=== PATIENT | female | born 1950 | race Caucasian/White ===

== ENCOUNTER 2017-01-15 17:01 | Inpatient (IN) ==
[2017-01-15] MEDS ORDERED: ASPIRIN PO STA (17:55)
[2017-01-15 18:01] LABS: MANUAL DIFF NEEDED? NO
[2017-01-15 18:04] LABS: BASO% 0.2 % (0.0-0.8); EOS# 0.09 X1000 (0.0-0.7); EOS% 0.8 % (0.0-10.0); HEMATOCRIT 46.3 % (37.0-47.0); HEMOGLOBIN 15.5 g/dL (12.0-16.0); IMM GRAN# 0.04 X1000 (0.0-0.04); IMM GRAN% 0.3 % (0.0-0.5); LYMPH# 2.36 X1000 (1.2-3.4); LYMPH% 20.6 % (20.5-51.1); MCH 29.4 PG (27-31); MCHC 33.5 g/dL (33-37); MCV 87.7 FL (81-99); MONO# 0.89 X1000 (0.11-0.59); MONO% 7.8 % (1.7-9.3); MPV 10.8 FL (7.4-10.4); NEUT% 70.3 % (42.2-75.2); PLT 220 X1000 (130-400); RBC 5.28 XMIL (4.2-5.4)
--- NOTE | 2017-01-15 18:04 | PROVIDER DOCUMENTATION ---
This chart was entered by Jeannette Krishnan Scribe, acting as scribe for Riccardo Khan MD. HPI-Chest Pain - General Source: patient - History of Present Illness-CP Location: reports: central Chest Pain Radiation: reports: jaw (R) Quality of Pain: reports: aching Severity in ED: mild Onset/Duration: just prior to arrival Timing: still present, intermittent Context/Activities at Onset: reports: light activity Modifying Factors: improves with: nothing Associated Symptoms: reports: dizziness, shortness of breath, weakness. denies : abdominal pain, back pain, diaphoresis, edema, fatigue, fever/chills, headache , heartburn, nausea, rash, swelling/lump in chest, syncope, vomiting Nitro Today/Relief: no nitro taken today Aspirin Treatment Today: no aspirin today Prior Chest Pain/Cardiac Workup: reports: no prior chest pain, no prior cardiac workup Similar Symptoms Previously?: Yes Recently Seen Here or By Another Healthcare Provider: No <Riccardo Khan I - Last Filed: 01/15/17 18:04> <Ko Kennedy - Last Filed: 01/15/17 22:23> - General Chief Complaint: Chest Pain Stated Complaint: syncope, R jaw pain, chest pressure Time Seen by Provider: 01/15/17 17:38 Allergies/Adverse Reactions: Patient Allergies Allergy/AdvReac Type Severity Reaction Status Date / Time No Known Allergies Allergy Verified 01/15/17 17:29 Home Medications: Home Medication List Medication Instructions Recorded Confirmed Last Taken Type Alprazolam [Xanax] 0.25 mg PO TID PRN PRN 06/16/13 01/15/17 Unknown History Levothyroxine [Synthroid] 100 microgm PO DAILY 06/16/13 01/15/17 01/15/17 10:00 History Triamterene/Hctz [Maxzide 75/50] 1 each PO DAILY 06/16/13 01/15/17 01/15/17 10: 00 History l-Dopa/Carbidopa/Entacapone 1 each PO 4XDAY 06/16/13 01/15/17 01/15/17 14:00 History [Stalevo 100] Oxybutynin [Ditropan] 15 mg PO BID 01/15/17 01/15/17 01/15/17 10:00 History - History of Present Illness-CP Nature of Presenting Problem: Pt is 66 y/o F presents to the ED via EMS for chest pain. Pt states chest pain started today. Pt states feeling dizzy prior to chest pain. Pt states chest pain radiates to R side of jaw. Pt states SOB. Pt denies HTN and diabetes. ( Jeannette Krishnan) Pt is 66 y/o F presents to the ED via EMS for chest pain. Pt states chest pain started today. Pt states feeling dizzy prior to chest pain. Pt states chest pain radiates to R side of jaw. Pt states SOB. Pt denies HTN and diabetes. ( Riccardo Khan I) Review of Systems - Adult - REVIEW OF SYSTEMS - ADULT Constitutional: reports: no symptoms reported Eyes: reports: no symptoms reported Ears, Nose, Mouth & Throat: reports: no symptoms reported Cardiovascular: reports: chest pain, irregular heart rate (tachy). denies: heart murmur Respiratory: reports: shortness of breath. denies: cough, wheezing Gastrointestinal: reports: no symptoms reported Genitourinary: reports: no symptoms reported Musculoskeletal: reports: no symptoms reported Integumentary: reports: no symptoms reported Neurological: reports: dizziness/vertigo (dizziness). denies: headache/ migraines, seizure, syncope Psychiatric: reports: no symptoms reported Endocrine: reports: no symptoms reported Hematologic/Lymphatic: reports: no symptoms reported Allergic/Immunologic: reports: no symptoms reported All Other Systems: Reviewed and Negative <Riccardo Khan I - Last Filed: 01/15/17 18:04> - REVIEW OF SYSTEMS - ADULT Constitutional: reports: no symptoms reported <Ko Kennedy - Last Filed: 01/15/17 22:23> Past History - Adult - PAST MEDICAL HISTORY-ADULT Review of Records: reports: Nursing Assessment Review, Medications Reviewed, Social history reviewed & non-contributory. Major Childhood Illnesses: reports: denies history Cardiovascular: reports: denies history Respiratory: reports: denies history Gastrointestinal: reports: denies history Obstetrical/Gynecological: reports: denies history Genitourinary: reports: denies history Musculoskeletal: reports: denies history Neurological: reports: denies history Psychiatric: reports: anxiety Endocrine/Immune: reports: thyroid disorder Other Conditions: reports: denies history - PRIOR SURGERIES/PROCEDURES Surgical/Procedure History: reports: cholecystectomy, BTL, joint replacement - IMMUNIZATION STATUS Childhood Immunizations: See Nurse Assessment Flu Vaccine: See Nurse Assessment - FAMILY HISTORY Family History: reviewed, not pertinent - SOCIAL HISTORY Smoking: denies Substance Use: alcohol Alcohol Use Frequency: occasionally Number of drinks per typical drinking period:: 2 drinks Living Situation: family <Riccardo Khan I - Last Filed: 01/15/17 18:04> - PAST MEDICAL HISTORY-ADULT Review of Records: reports: Medications Reviewed <Ko Kennedy - Last Filed: 01/15/17 22:23> Physical Exam-General - PHYSICAL EXAM-ADULT Initial Vital Signs Reviewed: Yes - CONSTITUTIONAL General Appearance: appears well, alert, no apparent distress, obese - EYES Eyes: PERRL/EOMI, pink conjunctivae - HEAD, EARS, NOSE, MOUTH & THROAT HENMT: normocephalic/atraumatic, moist mucous membranes, normal ENT inspection - NECK Neck: non-tender, full range of motion, supple, normal inspection - RESPIRATORY Respiratory: chest non-tender, lungs clear, normal breath sounds - CARDIOVASCULAR Cardiovascular: normal peripheral pulses, tachycardia - GASTROINTESTINAL (ABDOMEN) Abdominal Exam: normal bowel sounds, non tender, soft - LYMPHATIC Lymphatic: no adenopathy - MUSCULOSKELETAL Back Exam: normal inspection, no CVA tenderness, no vertebral tenderness Extremity: normal range of motion, non-tender, normal gait, normal inspection - SKIN Integumentary: normal color, normal turgor, warm/dry - NEUROLOGIC Neurologic: grossly normal - PSYCHIATRIC Psych/Mental Status: normal mood/affect, oriented x 3 <Riccardo Khan I - Last Filed: 01/15/17 18:04> - CONSTITUTIONAL General Appearance: appears well <Ko Kennedy - Last Filed: 01/15/17 22:23> Progress - EKG 1 Time of EKG reading by physician:: 17:15 EKG Read and Signed by:: Riccardo Khan EKG Interpretation (*Must complete 3 of following elements*): Abnormal (marked ST abnormality, possible anterolateral subendocardial injury.) Rate: 152 Rhythm: atrial fibrillation with rapid ventricular response Comments: marked ST abnormality, possible inferior subendocardial injury - CHANGE OF SHIFT REPORT (ED Provider) Report Given and Care Transferred to:: Dr. Kennedy Time of Transfer: 17:58 Items Pending: Labs, XRAY Results <BillRiccardo I - Last Filed: 01/15/17 18:04> - PLAN OF CARE/RESULTS Result Diagrams: 01/15/17 17:13 01/15/17 17:13 - CONSULTS/PCP/HOSPITALIST Notification #1 *Consult/PCP/Hospitalist*: akinsoto Time Discussed: 22:11 Consult Disposition: Will see in ED, Admit <Ko Kennedy - Last Filed: 01/15/17 22:23> - PLAN OF CARE/RESULTS Progress/Plan/Lab Results: Vital Signs - 8 hr 01/15/17 17:15 01/15/17 20:46 01/15/17 21:45 Temperature 97.8 F Pulse Rate 140 H 80 83 Respiratory Rate 24 21 19 Blood Pressure 104/52 115/49 100/54 O2 Sat by Pulse Oximetry 86 L 95 95 Laboratory Results - last 24 hr 01/15/17 01/15/17 01/15/17 17:13 17:13 17:13 WBC 11.44 H RBC 5.28 Hgb 15.5 Hct 46.3 MCV 87.7 MCH 29.4 MCHC 33.5 RDW Std Deviation 13.8 Plt Count 220 MPV 10.8 H Immature Gran % (Auto) 0.3 Neut % (Auto) 70.3 Lymph % (Auto) 20.6 [place] % (Auto) 7.8 Eos % (Auto) 0.8 Baso % (Auto) 0.2 Immature Gran # (Auto) 0.04 Neut # (Auto) 8.04 H Lymph # (Auto) 2.36 [place] # (Auto) 0.89 H Eos # (Auto) 0.09 Baso # (Auto) 0.02 PT INR PTT (Actin FS) Sodium 136 Potassium 3.4 L Chloride 92 L Carbon Dioxide 25 Anion Gap 19 BUN 31 H Creatinine 1.3 H Estimated GFR/1.73 m2 41 BUN/Creatinine Ratio 24 Glucose 121 H Calculated Osmolality 280 Calcium 10.0 Magnesium 2.1 Total Bilirubin 0.39 AST 67 H ALT 13 Alkaline Phosphatase 108 H Creatine Kinase 18 L Troponin T Lao-Y-Nenldklolew Pept 102 Total Protein 8.0 Albumin 4.3 Globulin 3.7 Albumin/Globulin Ratio 1.2 Urine Source Urine Color Urine Turbidity Urine pH Ur Specific [place] Urine Protein Ur Glucose (Stick) Ur Ketones (Stick) Urine Blood Urine Nitrite Urine Bilirubin Urobilinogen Dipstick Urine Leukocytes Urine WBC (Auto) Urine RBC (Auto) U Epithel Cells (Auto) Urine Bacteria (Auto) 01/15/17 01/15/17 01/15/17 17:13 17:13 20:43 WBC RBC Hgb Hct MCV MCH MCHC RDW Std Deviation Plt Count MPV Immature Gran % (Auto) Neut % (Auto) Lymph % (Auto) [place] % (Auto) Eos % (Auto) Baso % (Auto) Immature Gran # (Auto) Neut # (Auto) Lymph # (Auto) [place] # (Auto) Eos # (Auto) Baso # (Auto) PT 10.5 INR 1.00 PTT (Actin FS) 27.5 Sodium Potassium Chloride Carbon Dioxide Anion Gap BUN Creatinine Estimated GFR/1.73 m2 BUN/Creatinine Ratio Glucose Calculated Osmolality Calcium Magnesium Total Bilirubin AST ALT Alkaline Phosphatase Creatine Kinase 24 Troponin T 0.012 Ahb-C-Apahwgpyelk Pept Total Protein Albumin Globulin Albumin/Globulin Ratio Urine Source Urine Color Urine Turbidity Urine pH Ur Specific [place] Urine Protein Ur Glucose (Stick) Ur Ketones (Stick) Urine Blood Urine Nitrite Urine Bilirubin Urobilinogen Dipstick Urine Leukocytes Urine WBC (Auto) Urine RBC (Auto) U Epithel Cells (Auto) Urine Bacteria (Auto) 01/15/17 01/15/17 20:43 21:06 WBC RBC Hgb Hct MCV MCH MCHC RDW Std Deviation Plt Count MPV Immature Gran % (Auto) Neut % (Auto) Lymph % (Auto) [place] % (Auto) Eos % (Auto) Baso % (Auto) Immature Gran # (Auto) Neut # (Auto) Lymph # (Auto) [place] # (Auto) Eos # (Auto) Baso # (Auto) PT INR PTT (Actin FS) Sodium Potassium Chloride Carbon Dioxide Anion Gap BUN Creatinine Estimated GFR/1.73 m2 BUN/Creatinine Ratio Glucose Calculated Osmolality Calcium Magnesium Total Bilirubin AST ALT Alkaline Phosphatase Creatine Kinase Troponin T 0.226 H D Car-H-Usclrbdsxzt Pept Total Protein Albumin Globulin Albumin/Globulin Ratio Urine Source CLEAN CATCH Urine Color YELLOW Urine Turbidity HAZY Urine pH 7.0 Ur Specific [place] 1.014 Urine Protein NEGATIVE Ur Glucose (Stick) NEGATIVE Ur Ketones (Stick) NEGATIVE Urine Blood NEGATIVE Urine Nitrite NEGATIVE Urine Bilirubin NEGATIVE Urobilinogen Dipstick NORMAL Urine Leukocytes NEGATIVE Urine WBC (Auto) <10 Urine RBC (Auto) <10 U Epithel Cells (Auto) <10 Urine Bacteria (Auto) NEGATIVE Orders Category Date Time Status Cardiac Monitoring DIRECTED Care 01/15/17 17:55 Active Saline Loc NOW Care 01/15/17 17:55 Active CHEST-1 VIEW [RAD] Stat Exams 01/15/17 17:56 Completed CBC WITH ELECTRONIC DIFF [HEME] Stat Lab 01/15/17 17:13 Completed CK PROFILE [SP CHEM] Stat Lab 01/15/17 17:13 Completed CK PROFILE [SP CHEM] Stat Lab 01/15/17 20:43 Completed COMPREHENSIVE METABOLIC PANEL [CHEM] Stat Lab 01/15/17 17:13 Completed MAGNESIUM [CHEM] Stat Lab 01/15/17 17:13 Completed PRO B-NATRIURETIC PEPTIDE Stat Lab 01/15/17 17:13 Completed PROTIME WITH INR [COAG] Stat Lab 01/15/17 17:13 Completed PTT [COAG] Stat Lab 01/15/17 17:13 Completed TROPONIN T Stat Lab 01/15/17 17:13 Completed TROPONIN T Stat Lab 01/15/17 20:43 Completed URINALYSIS W/POSS RFLX CULT [URINALYSIS] Stat Lab 01/15/17 21:06 Completed Aspirin Med 01/15/17 17:55 Discontinued 325 mg PO STAT STA Enoxaparin [Lovenox] Med 01/15/17 22:09 Discontinued 100 mg SUBQ NOW ONE EKG [EKG] Stat Ther 01/15/17 17:55 Ordered EKG [EKG] Stat Ther 01/15/17 19:55 Ordered Departure <Riccardo Khan I - Last Filed: 01/15/17 18:04> - Departure Date of Disposition Decision: 01/15/17 Time of Disposition Decision: 22:11 Certified Medical Emergency: Emergent - Critical Care Note This patient required my direct & personal management of CC.: No <Ko Kennedy - Last Filed: 01/15/17 22:23> - Departure DIAGNOSIS: Non Q wave myocardial infarction Disposition: ADMITTED INPATIENT 09 Condition: Good Referrals and Follow-Ups: Luis Cox MD [Primary Care Provider] - This chart was documented by the indicated scribe, (Jeannette Krishnan Scribe) and accurately reflects the services I performed and decisions made by me, Riccardo Khan MD, as attested by the provider's signature.
[2017-01-15 18:13] LABS: PROTIME 10.5 Seconds (9.2-11.7); PTT 27.5 Seconds (22.0-36.0)
--- NOTE | 2017-01-15 18:24 | Diag Imaging Result Doc PS360 ---
CHEST-1 VIEW - 01/15/2017 INDICATION: weak TECHNIQUE: COMPARISON: 11/26/2011 FINDINGS: The lungs are normally expanded and clear. Heart size and mediastinal contours are normal. No pneumothorax or pleural effusion. IMPRESSION: Negative exam. Electronically signed by Cayetano Lawrence 01/15/2017 6:22 PM
[2017-01-15 18:27] LABS: ALBUMIN 4.3 g/dL (3.5-5.0); MAGNESIUM 2.1 mg/dL (1.5-2.7); POTASSIUM 3.4 mmol/L (3.5-5.1); TOTAL BILIRUBIN 0.39 mg/dL (0.20-1.00)
[2017-01-15 21:20] LABS: URINE CULTURE NEEDED? NO; URINE MICRO REVIEW NEEDED? NO; URINE SOURCE CLEAN CATCH
[2017-01-15 21:58] LABS: BILIRUBIN URINE NEGATIVE (NEGATIVE); BLOOD URINE NEGATIVE (NEGATIVE); COLOR YELLOW; GLUCOSE URINE NEGATIVE (NEGATIVE); LEUKOCYTES URINE NEGATIVE (NEGATIVE); NITRITE URINE NEGATIVE (NEGATIVE); PROTEIN URINE NEGATIVE (NEGATIVE); SP GRAVITY URINE 1.014; TURBIDITY URINE HAZY (CLEAR); UR EPITHELIAL CELLS <10 /HPF (<10); URINE BACTERIA NEGATIVE /HPF; URINE RBC <10 /HPF (<10); URINE WBC <10 /HPF (<10); UROBILINOGEN URINE NORMAL (NORMAL)
[2017-01-15] MEDS ORDERED: LOVENOX SUBQ ONE (22:09)
[2017-01-15] MEDS ORDERED: NS 1,000 ML IV ONE ×2 (22:25→23:56)
[2017-01-15] MEDS ORDERED: KLOR-CON PO ONE (22:57)
[2017-01-15] MEDS ORDERED: ZOFRAN IV PRN (23:56)
[2017-01-15] MEDS ORDERED: TYLENOL PO PRN (23:56)
--- NOTE | 2017-01-15 23:58 | HISTORY AND PHYSICAL ---
PRIMARY CARE PROVIDER: Dr. Luis Cox. NEUROLOGIST: Dr. Riddle at [facility]. CHIEF COMPLAINT: Chest pain, shortness of breath and dizziness. HISTORY OF PRESENT ILLNESS: This is a 66-year-old female who has a history of Parkinson disease, hypothyroidism who presented to the emergency room tonight related to having what she described as a near syncopal episode. She was in the kitchen when she became lightheaded and short of breath. She put herself against the wall and slid to the floor. She did not hit her head. She did not have full loss of consciousness. She began to have a substernal chest pain that radiated into her right jaw. She had a similar episode to this yesterday but did not have the syncope accompanying. She graded the chest pain as more of a tightness or feeling that her throat had something stuck in it more than a pain and she did not quantified the pain on a 0-10 scale. On arrival to the emergency room she was noted to be tachycardic. However she was in atrial fibrillation which she does not have a history of. She was also hypoxic with an oxygen saturation of 86% on room air. Initial laboratory data showed a normal CK and troponin. The troponin was 0.012. On recheck at 3 hours the patient's troponin had elevated to 0.226 but the CK remained normal. The patient did convert back to a sinus rhythm. The EKG showed some inverted T-waves associated with ischemia. A CTA was obtained in the emergency room to rule out pulmonary embolism and the study was positive for bilateral PE. She was given 100 mcg of Lovenox in the emergency room and she will be admitted to CICU for further evaluation and treatment. PAST MEDICAL HISTORY: 1. Parkinson's. 2. Hypothyroidism. 3. Degenerative disk disease. 4. Lower extremity edema. PREVIOUS SURGICAL HISTORY: 1. Right knee replacement. 2. Rhinoplasty. 3. Tubal ligation. 4. Cholecystectomy. SOCIAL HISTORY: Lives with her . Denies tobacco, alcohol or illicit drug use or abuse. Family at bedside. Very supportive. FAMILY HISTORY: Mother apparently was quite secretive about her medical history. She seems to have had congestive heart failure. at the age 81. Her father had a stroke at age 65 and he later at age 81 as well. ALLERGIES: No known drug allergies. HOME MEDICATIONS: 1. Xanax 0.25 mg p.o. t.i.d. p.r.n. 2. Levothyroxine 100 mcg p.o. daily. 3. Maxzide 75/50 one p.o. daily. 4. Stalevo 100 one p.o. 4 times a day. 5. Ditropan 15 mg p.o. b.i.d. REVIEW OF SYSTEMS: Fourteen point review of systems conducted with patient. She had complaint of dizziness, shortness of breath, chest pain. She also reports intermittent calf pain. She denied any orthopnea, increased dyspnea on exertion. Patient is immobile for long periods of time either in the bed or lift chair related to Parkinson's and has had frequent falls. Other pertinent positives are listed above in the HPI. All other systems in 14 point review of systems were reviewed and found to be negative. PHYSICAL EXAMINATION: VITAL SIGNS: Temperature 97.8 degrees, pulse 83, respirations 19, blood pressure 100/54, oxygen saturation 95% on room air. GENERAL: Pleasant 66-year-old female lying in the ER stretcher. No acute distress. Answers all questions appropriately. at bedside. HEENT: Head is atraumatic, normocephalic. Pupils equal, round, reactive to light. Extraocular eye movement intact. Sclerae is anicteric. Conjunctivae is pink. Oral mucosa is dry. NECK: Supple. No JVD. No thyromegaly. Trachea is midline. CARDIAC: S1-S2 appreciated. Regular rate and rhythm. No murmurs, gallops, rubs. LUNGS: Clear to auscultation bilaterally. No rhonchi, wheezes or rales. Symmetrical rise and fall respirations. ABDOMEN: Protuberant, soft, nondistended, nontender. Bowel sounds present all 4 quadrants. Normoactive. No pulsatile mass. No or organomegaly. EXTREMITIES: Trace nonpitting bilateral lower extremity edema. 2+ pedal pulses bilaterally. GENITOURINARY: Patient voids otherwise deferred. NEUROLOGICAL: Alert and oriented x3. Cranial nerves 2-12 grossly intact. SKIN: Warm, dry, intact. No acute lesions or rash. DIAGNOSTIC DATA: CT angio of the thorax showed bilateral pulmonary embolism. EKG did show a T wave inflexions. LABORATORY DATA: WBC 11.44, hemoglobin 15.5, hematocrit 46.3, platelet count 220,000. Coagulations within normal limits. Sodium 136, potassium 3.4, chloride 92, carbon dioxide 25, BUN 31, creatinine 1.3, glucose 121. CK 24, troponin 0.226. Urine unremarkable. ASSESSMENT AND PLAN: 1. Bilateral pulmonary embolisms. Patient was given 100 mcg of Lovenox. Will continue Lovenox 1 mg/kg b.i.d. so that she can later be bridged to a oral anticoagulant. 2. New onset atrial fibrillation. This was likely related to sudden hypoxia from the pulmonary embolism. The patient has returned to normal sinus rhythm. Will recheck EKG in a.m. and order echocardiogram. 3. Acute kidney injury. Patient is on high-dose Maxzide. Will hold at this time. Give 1 L fluid bolus with a 2nd L fluid bolus after CT thorax. Will monitor creatinine level. 4. Parkinson's. Continue home medications. 5. Hypothyroidism. Continue Synthroid. Check TSH level. 6. Hypokalemia. Will give 40 mEq of potassium. Further recommendations per patient clinical course. Dictated by MAX Bazan for Luigi Aguillon MD cc: MD Luigi Ortiz MD [facility]
[2017-01-16 02:08] LABS: MANUAL DIFF NEEDED? NO
[2017-01-16 02:10] LABS: BASO% 0.3 % (0.0-0.8); EOS# 0.05 X1000 (0.0-0.7); EOS% 0.5 % (0.0-10.0); HEMATOCRIT 40.5 % (37.0-47.0); HEMOGLOBIN 13.8 g/dL (12.0-16.0); IMM GRAN# 0.02 X1000 (0.0-0.04); IMM GRAN% 0.2 % (0.0-0.5); LYMPH# 2.14 X1000 (1.2-3.4); LYMPH% 19.7 % (20.5-51.1); MCH 29.7 PG (27-31); MCHC 34.1 g/dL (33-37); MCV 87.1 FL (81-99); MONO# 0.91 X1000 (0.11-0.59); MONO% 8.4 % (1.7-9.3); MPV 10.3 FL (7.4-10.4); NEUT% 70.9 % (42.2-75.2); PLT 187 X1000 (130-400); RBC 4.65 XMIL (4.2-5.4)
[2017-01-16 02:32] LABS: CALCIUM 9.1 mg/dL (8.8-10.2); POTASSIUM 3.7 mmol/L (3.5-5.1)
[2017-01-16 04:40] LABS: URINE CULTURE NEEDED? NO; URINE MICRO REVIEW NEEDED? NO; URINE SOURCE CLEAN CATCH
[2017-01-16 04:42] LABS: BILIRUBIN URINE NEGATIVE (NEGATIVE); BLOOD URINE NEGATIVE (NEGATIVE); COLOR YELLOW; GLUCOSE URINE NEGATIVE (NEGATIVE); LEUKOCYTES URINE NEGATIVE (NEGATIVE); NITRITE URINE NEGATIVE (NEGATIVE); PH URINE 6.5; PROTEIN URINE NEGATIVE (NEGATIVE); SP GRAVITY URINE 1.025; TURBIDITY URINE CLEAR (CLEAR); UROBILINOGEN URINE NORMAL (NORMAL)
[2017-01-16 04:44] LABS: UR EPITHELIAL CELLS <10 /HPF (<10); URINE BACTERIA NEGATIVE /HPF; URINE RBC <10 /HPF (<10); URINE WBC <10 /HPF (<10)
[2017-01-16] MEDS: SYNTHROID PO SCH (06:23)
[2017-01-16] MEDS: DITROPAN PO SCH ×2 (09:19→20:36)
[2017-01-16] MEDS: PRILOSEC PO SCH (09:19)
[2017-01-16] MEDS: STALEVO 100 PO SCH ×4 (09:19→21:52)
--- NOTE | 2017-01-16 09:29 | Diag Imaging Result Doc PS360 ---
ANGIOGRAM/PULMONARY ARTERIES - 01/15/2017 INDICATION: r/o PE TECHNIQUE: Axial CT images were obtained after administering intravenous contrast. Coronal MIP images were generated. A CT dose reduction protocol was used. COMPARISON: None FINDINGS: There are large bilateral pulmonary emboli involving every lobe are and numerous segmental arteries. Heart size is top normal. No infiltrates or effusions. Upper abdominal images are unremarkable. There are moderate degenerative changes of the spine. No acute or suspicious bony lesion. IMPRESSION: Numerous large bilateral pulmonary emboli. A report was immediately called to the patient's emergency room physician. Electronically signed by Cayetano Lawrence 01/16/2017 9:27 AM
[2017-01-16] MEDS: LOVENOX SUBQ SCH ×3 (10:39→22:00)
--- NOTE | 2017-01-16 11:48 | CONSULTATION ---
DATE OF CONSULTATION: 01/16/2017 REFERRING PHYSICIAN: Hospitalist service. REASON FOR CONSULTATION: Near fainting, shortness of breath, chest discomfort, irregular heartbeat, atrial fibrillation. HISTORY: Mrs. Chanel is a 66-year-old female who was in her usual state of health up until 2 days prior to admission. On , she had an episode where she felt briefly like she was going to get faint and flushed. She felt slightly unsteady like with blurred vision, and she felt like she was sliding down, and she sat on a chair, and that broke the fall. Then the next day, at about 5 p.m., she was next to the kitchen, and she again had an episode of feeling weak and lightheaded, and this time she actually went down without hurting herself, without losing consciousness. On the floor, she picked up her cell phone and called her who came to the rescue. happens to be a former sound art instructor from [employer] in [place] who at that time listened to what she was saying. She complained of pain in the jaw, also heaviness in the chest, and shortness of breath, and he thought that she was having a heart attack. These symptoms went on for 25 minutes. The paramedics got there and took her to the emergency room department where on initial encounter she was found to be tachycardic. Initial electrocardiogram showed atrial fibrillation with a rapid response of 152 beats per minute. That was at 5:[address]-T abnormality. They did several troponins, 0.012, 0.226, 0.166, and 0.078. The patient had CPKs done at this time--all of them are negative. Subsequently, her electrocardiogram returned back to normal sinus rhythm around 6:46 p.m. EKG showed sinus rhythm with possible left atrial enlargement and diffuse T wave in precordial leads V1 through V3 and also in inferior leads. Next EKG at 8:38 p.m. shows the same, and the one done this morning at 6:09 a.m. shows sinus rhythm with a nonspecific ST-T in the inferior leads. The patient's chest x-ray shows a negative exam. They did a CT angiogram of the pulmonary arteries that shows numerous large bilateral pulmonary emboli. The patient has already started on enoxaparin. She said that her breathing is somewhat better. She is not having any more chest pain. She tells me that about 2 weeks ago she had an area of redness in the left anterior wilkinson in the middle of her leg, and she felt a warmth there, "fever," and that lasted for a couple of days and subsided. She also tells me that a week ago on the weekend she was running around [employer] sitting in a car, and she did this for several hours without moving much. She normally does not drink a whole lot of fluids, and she is taking a diuretic. The patient is nearly morbidly obese. Her body mass index is 39, and she says that she has lost 35 pounds over the course of the past several months, meaning that she was indeed morbidly obese before. PAST HISTORY: Positive for hypothyroidism and arthritis of the knee. SURGICAL HISTORY: Positive for cholecystectomy and right total knee replacement about 5 years ago. The patient carries a diagnosis of Parkinson disease which has been followed at the [facility] for the past 12-14 years. About a year and a half ago, she switched over to a doctor in [place]. She has suffered infrequent falls. She does not have any history of previous heart attack, diabetes, stroke, or irregular heartbeats. MEDICATION LIST: At this time included Neupro which is rotigotine one tablet daily, tramadol 50 mg as needed, prednisone 5 mg daily, sertraline 50 mg daily, L-dopa/carbidopa, entacapone which is Stalevo 100 she takes four times a day, triamterene/hydrochlorothiazide 75/50 one tablet daily, Ditropan 50 mg twice a day, Synthroid 100 mcg daily, alprazolam 0.25 mg three times a day. ALLERGIES: She reports no allergies. SOCIAL HISTORY: She has been to her for 40-something years. She is not a smoker. 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 She has 3 children, ages 39, 34, and 29. REVIEW OF SYSTEMS: Basically, she has limited mobility due to her history of Parkinson disease. She walks with a walker and with a cane. She does not have normally any symptoms in the chest when she does exercise. No abdominal issues. She has some bladder dysfunction. She has some history of swelling of the legs. However, since she lost 35 pounds, the swelling has become less noticeable. She never had previous episodes of deep venous thrombosis. No diabetes, no stroke/TIA, no hearing or visual problems. No lung disease. No prior cardiovascular disorders. No gastrointestinal issues. No skin issues. No psychiatric illness. She acknowledges having Parkinson disease which is being treated at this time. PHYSICAL EXAMINATION: Vital signs: Blood pressure is 99/61, temperature 98.2, pulse 67, respirations 20. General: She is awake, alert, oriented, in no distress. HEENT: Unremarkable. Chest: Shows occasionally some crepitance in the left base. Cardiac: Heart sounds are regular and rhythmic. I do not hear any definite gallop or murmur. Abdomen: Obese, nontender. There is no masses, no hepatomegaly. Extremities: Good pulses. There is no peripheral edema. Neurological: Moves four extremities, follows commands. Cranial nerves normal. BLOOD WORK: White count today is 10,880, hemoglobin 13.8, hematocrit 40.5. Her D-dimer is 15.02. Sodium 140, potassium 3.7, chloride 101, carbon dioxide 25, BUN 25, creatinine 1.0. IMPRESSION: 1. Patient who has a massive pulmonary embolism. She probably has underlying deep venous thrombosis. She complained of discomfort in the left leg with warmth and some bulging 2 weeks prior to this incident, and in addition, she had spent several hours sitting in a car a week prior to this incident. 2. Mild elevation of troponin level with abnormal EKGs suggesting subendocardial ischemia. This probably relates to right ventricular strain from the acute massive pulmonary embolism. This is not uncommon, and it does not indicate that she has coronary heart disease. Of note, the review of her CT angiogram of the lungs does not reveal any significant calcification of the coronary arteries. 3. Transient paroxysmal atrial fibrillation,likely related to acute cor pulmonale from massive pulmonary embolism. 4. The patient is nearly morbidly obese. 5. The patient has a long-term history of Parkinson disease with functional impairment. 6. History of hypothyroidism. RECOMMENDATION: At this point in time, I would suggest to keep her on enoxaparin. Because of the massive pulmonary embolism, it is probably best to keep her in the hospital for 3 or 4 days to make sure that she is absolutely stable prior to discharge. We have ordered echocardiogram, ultrasound of the legs to determine the origin of the clots. She will probably require long-term anticoagulation thereafter with one of the new anticoagulant agents or warfarin. Perhaps in 6 to 12 months, she may need a stress test for further evaluation. However, again, my index of suspicion for coronary heart disease at this time is very low, and the troponin elevation which is minimal and the ECG changes are well explained by a massive pulmonary embolism. Her short lasting bout of atrial fibrillation does not require specific management. It was probably related to the acute cor pulmonale. Thank you again for the opportunity to participate in her evaluation. Best regards. cc: Fred Palencia MD MTDD
[2017-01-16] MEDS: LOPRESSOR PO SCH ×3 (12:39→20:36)
--- NOTE | 2017-01-16 13:11 | PROGRESS NOTE ---
DATE: 01/16/2017 SUBJECTIVE: The patient has no focal complaints of some pain and swelling, but she does not seem to be in respiratory distress. OBJECTIVE: Vital Signs: Blood pressure 110/53, heart rate of 67, respiratory rate 14, temperature 97.7 degrees at 97% on 2 L. Cardiovascular: Regular rate and rhythm. Pulmonary: Bilateral breath sounds. Clear to auscultation. GI: Soft, nontender, nondistended. Bowel sounds are positive. LABORATORY DATA: White count 10, hemoglobin and hematocrit 13 and 40, platelets 187. D-dimer 15. BUN and creatinine of 25 and 1. Troponin was 0.078. UA was negative. PROBLEM LIST: 1. Acute pulmonary embolism. She is on Lovenox. Will likely transition her to Eliquis for the next 24 hours. As far as risk factors, she is obese, she has chronic venous insufficiency, and she has been on prolonged car trips, but only about an hour or two, so I am not sure. She reports being up-to-date on her malignancy workups, but in any case clinically she looks okay. She has bilateral pulmonary emboli. We will rule out deep vein thrombosis. I agree with Dr. Palencia with [facility] just to document the lower extremity deep vein thrombosis and we will follow. 2. Elevated troponin. Atrial fibrillation appears to be rate controlled now. She is not on any medication for that. I think I am going to put her on a little bit of Lopressor just to keep her in check, but we will follow. Again, atrial fibrillation is likely reactive to her acute pulmonary embolus. Echocardiogram is pending. Thyroid stimulating hormone was normal. Repeat troponins are negative. I am not going to trend them out. 3. Parkinsonism. She is on Stalevo, currently stable. DISPOSITION: Pending her clinical course, likely here another couple days to stabilize and we will follow. cc: Hussain Alcantara MD
--- NOTE | 2017-01-16 17:36 | ECHO REPORT ---
ORDER DATE: 01/16/2017 INTERPRETING PHYSICIAN: Dr. Palencia REQUESTING PHYSICIAN: CLINICAL INDICATIONS: Pulmonary embolism, non ST elevation OR. M-MODE MEASUREMENTS: Right ventricle: 3.4 cm. Left ventricle end diastole: 4.7 cm. Left ventricle end systole: 2.6 cm. Posterior wall: 1.1 cm. Interventricular septum: 1.2 cm. Left atrium: 3.5 cm. Aortic root: 3.4 cm. SUMMARY OF 2-DIMENSIONAL IMAGING: The left ventricular function is normal. Ejection fraction estimated at 68%. The ventricular chamber is not dilated. The right ventricle is moderately enlarged. The inferior vena cava also appears to be borderline enlarged. The tricuspid valve shows a mild degree of regurgitation. Pulmonary pressure estimated at 44 mmHg. The pulmonic artery looks normal. Color flow mapping unremarkable. The mitral valve looks normal. Color flow mapping indicates a trivial degree of regurgitation. Pulse wave Doppler of mitral inflow is normal. Tissue Doppler of septal and lateral mitral annulus averages 10 cm per second. Pulmonary venous flow is normal. There is no diastolic dysfunction. The aortic valve looks normal. Color flow mapping unremarkable. There is no pericardial effusion, masses or thrombus. The right atrium appears to be mildly enlarged. The left atrium appears to be normal. IMPRESSION: In summary, this study shows: 1. Normal left ventricular systolic function. Ejection fraction 68%. 2. Mild to moderately enlarged right ventricle. 3. Mild degree of pulmonary hypertension. 4. No diastolic dysfunction. 5. No evidence of any significant valvular abnormality. 6. There is mild enlargement of the right atrium. Clinical correlation recommended. cc: MD Mir Melchor CRNP
--- NOTE | 2017-01-16 20:17 | Extremity Venous Study ---
PROCEDURE NAME: Venous U/S Bilateral Legs - 01/16/2017 BILATERAL LOWER EXTREMITY VENOUS ULTRASOUND: REQUESTING PHYSICIANS: Fred Palencia MD. TAX MANAGER CPA: Michael. INDICATION: Pulmonary embolus. FINDINGS: The deep and superficial veins of bilateral lower extremities were visualized along their course in the right side all veins compressible forward flow no evidence intraluminal thrombus. On the left side in the posterior tibial vein and peroneal vein there appears to be lack of flow and lack of compressibility here consistent with acute deep vein thrombosis involving the posterior tibial vein and peroneal vein. There is no superficial venous thrombosis seen in the left lower extremity. SUMMARY: 1. Left-sided deep vein thrombosis in the posterior tibial and peroneal vein. 2. These results were called to Dr. Alcantara and Dr. Palencia following the exam by the robotics testing technician. cc: MD Fred Victoria MD
[2017-01-16] MEDS: XANAX PO PRN (20:36)
[2017-01-17 05:20] LABS: HEMATOCRIT 39.5 % (37.0-47.0); HEMOGLOBIN 13.4 g/dL (12.0-16.0); MCH 29.6 PG (27-31); MCHC 33.9 g/dL (33-37); MCV 87.2 FL (81-99); MPV 10.3 FL (7.4-10.4); RBC 4.53 XMIL (4.2-5.4)
[2017-01-17 05:41] LABS: AGAP 11; BUN 18 mg/dL (8-22); CHLORIDE 100 mmol/L (98-107); COSMO 277; POTASSIUM 3.3 mmol/L (3.5-5.1); SODIUM 138 mmol/L (136-145); TCO2 27 mmol/L (25-35)
[2017-01-17] MEDS: SYNTHROID PO SCH (06:18)
[2017-01-17] MEDS: DITROPAN PO SCH ×2 (08:47→21:01)
[2017-01-17] MEDS: PRILOSEC PO SCH (08:47)
[2017-01-17] MEDS: STALEVO 100 PO SCH ×4 (08:47→21:01)
[2017-01-17] MEDS: LOPRESSOR PO SCH ×2 (08:49→21:01)
[2017-01-17] MEDS ORDERED: POTASSIUM CHLORIDE 20% LIQUID PO ONE (09:33)
--- NOTE | 2017-01-17 10:06 | PROGRESS NOTE ---
DATE: 01/17/2017 CHIEF COMPLAINT: Shortness of breath, irregular heartbeat. SUBJECTIVE: Ms. Chanel is feeling better today. She really wants to get out of bed and take a shower. She has just started her Lovenox therapy about 24 hours ago. She is not having any chest pain. Rhythm remains sinus. OBJECTIVE: Blood pressure is 110/61, temperature 99.2, pulse 61, respirations 18. She is awake, alert and oriented, in no distress. HEENT is normal. Chest reveals occasional some crepitans at the bases. Heart sounds are regular and rhythmic. I do not hear any gallop or murmur. Abdomen is obese, nontender. There is no hepatomegaly. Extremities show good pulses. There is no evidence of any significant peripheral edema. Neurologic: She has some subtle stiffness. Moves all 4 extremities, follows commands. Voice tone is somewhat muffled. DIAGNOSTIC DATA: Her blood work today shows hemoglobin is 13.4, hematocrit 39.5, platelet count 192,000, it was 220,000 on admission. White count is 7610. Sodium is 138, potassium 3.3, BUN is 18, creatinine 0.8. Her troponins were 0.012, 0.226, 0.166 and 0.078. Two urinalyses are negative. Her echocardiogram, which I reviewed yesterday, shows normal left ventricular function, ejection fraction was 68%. There is mild to moderate enlargement of right ventricle with preserved function. Pulmonary pressure was 44 mmHg. No diastolic dysfunction was noted. The preliminary report of venous ultrasound given to me verbally by the lens edge grinder machine is that she did have deep venous thrombosis in the left calf; however, there is no extension into the popliteal or femoral vein. IMPRESSION: 1. The patient has suffered pulmonary embolism, probably secondary to deep venous thrombosis arising from the left leg. Radiographically and clinically, this was probably a large embolus given the fact that she went into atrial fibrillation and had elevation of the cardiac enzymes. The echocardiogram is actually reassuring in the sense that there is no evidence of right ventricular systolic failure. 2. History of Parkinson's. 3. History of hypothyroidism. RECOMMENDATIONS: At this point in time, I would suggest to continue anticoagulation as we are doing. Perhaps tomorrow afternoon, we could switch to an oral anticoagulant and then prepare for discharge possibly on Wednesday with instructions to stay for a long time on the anticoagulant, my advice would be indefinitely. I will be very happy to arrange for followup with me at the office, although at this time I do not plan on doing any specific cardiac intervention. Probably in the next 6 to 12 months, we might think about doing a stress test at some point. Thank you again for the opportunity to participate in her evaluation. Best regards. cc: Fred Palencia MD
[2017-01-17] MEDS: LOVENOX SUBQ SCH (11:17)
[2017-01-17] MEDS ORDERED: RESTORIL PO PRN (12:45)
[2017-01-17] MEDS ORDERED: LOVENOX SUBQ SCH ×2 (12:46→23:00)
[2017-01-17] MEDS ORDERED: ULTRAM PO PRN (12:47)
[2017-01-17] MEDS: MIRALAX PO SCH (13:23)
[2017-01-17] MEDS: LACTULOSE PO SCH ×2 (13:23→21:01)
[2017-01-17] MEDS: ZOLOFT PO SCH (13:23)
--- NOTE | 2017-01-17 16:49 | PROGRESS NOTE ---
DATE: 01/17/2017 SUBJECTIVE: Patient has no focal complaints. OBJECTIVE: Vital signs: Blood pressure 103/59, heart rate 63, respiratory 17, temperature 99.2 degrees, 96% on 2 L. Cardiovascular: Regular rate and rhythm. Pulmonary: Bilateral breath sounds. Clear to auscultation. GI: Soft, nontender, nondistended. Bowel sounds are positive. LABORATORY DATA: Normal CBC, normal basic except for potassium of 3.3. PROBLEM LIST: 1. Acute pulmonary embolism. Patient is on Lovenox. Will transition to Eliquis in the morning per Dr. Subramanian's recommendation. She is getting a hypercoagulable workup. Again it was probably related to venous insufficiency and prolonged car trips. She does not have RV failure. She does have a left lower extremity DVT but below the knee posterior tibial and peroneal veins. In any case clinically she was stabilized, she is doing very well I think, appreciate Dr. Subramanian's input. 2. Atrial fibrillation likely reactive. Echocardiogram looks okay, TSH is okay. I have left her on a little bit of Lopressor, will discuss with him about discharging her on that versus nothing because it was likely reactive. 3. Constipation. Initiate bowel regimen. DISPOSITION: Home Wednesday if clinically stable, work on not ambulation but at least getting out of bed today and we will go from there. cc: MD Dr. GERALD Osuna
[2017-01-18 05:17] LABS: HEMATOCRIT 39.8 % (37.0-47.0); HEMOGLOBIN 13.3 g/dL (12.0-16.0); MCH 30.1 PG (27-31); MCHC 33.4 g/dL (33-37); RBC 4.42 XMIL (4.2-5.4)
[2017-01-18 05:36] LABS: AGAP 12; BUN 20 mg/dL (8-22); CALCIUM 8.8 mg/dL (8.8-10.2); CHLORIDE 105 mmol/L (98-107); COSMO 286; MAGNESIUM 1.9 mg/dL (1.5-2.7); POTASSIUM 3.4 mmol/L (3.5-5.1); SODIUM 142 mmol/L (136-145); TCO2 25 mmol/L (25-35)
[2017-01-18] MEDS: SYNTHROID PO SCH (06:08)
--- NOTE | 2017-01-18 06:25 | EKG Report ---
Test Performed on : 01/16/2017 06:09:09 AM Test Reason : eval rhythm Blood Pressure : / mmHG Vent. Rate : 064 BPM Atrial Rate : 064 BPM P-R Int : 146 ms QRS Dur : 084 ms QT Int : 406 ms P-R-T Axes : 061 037 -15 degrees QTc Int : 418 ms Normal sinus rhythm. Nonspecific ST and T wave abnormality Abnormal ECG When compared with ECG of 15-JAN-2017 20:38, (Unconfirmed) No significant change was found Confirmed by David CAMPOS, Israel Johns ([id number]) on 01/19/2017 2:14:48 PM
--- NOTE | 2017-01-18 07:56 | EKG Report ---
Test Performed on : 01/15/2017 5:15:01 PM Test Reason : No Order in [facility] Blood Pressure : / mmHG Vent. Rate : 152 BPM Atrial Rate : 187 BPM P-R Int : 000 ms QRS Dur : 098 ms QT Int : 306 ms P-R-T Axes : 000 058 -85 degrees QTc Int : 486 ms Atrial fibrillation. with rapid ventricular response. Marked ST abnormality, possible inferior subendocardial injury Marked ST abnormality, possible anterolateral subendocardial injury Abnormal ECG When compared with ECG of 16-JUN-2013 15:31, Significant changes have occurred Unconfirmed Result
[2017-01-18] MEDS: MIRALAX PO SCH (08:30)
[2017-01-18] MEDS: LOPRESSOR PO SCH (08:31)
[2017-01-18] MEDS: PREDNISONE PO SCH (08:31)
[2017-01-18] MEDS: PRILOSEC PO SCH (08:31)
[2017-01-18] MEDS: DITROPAN PO SCH ×2 (08:31→20:10)
[2017-01-18] MEDS: ZOLOFT PO SCH (08:31)
[2017-01-18] MEDS: STALEVO 100 PO SCH ×4 (08:31→20:10)
[2017-01-18] MEDS ORDERED: ELIQUIS PO SCH ×2 (09:00→21:00)
[2017-01-18] MEDS ORDERED: ELIQUIS PO ONE (10:30)
[2017-01-18] MEDS: PATIENT'S OWN MED TD SCH (12:04)
--- NOTE | 2017-01-18 12:08 | PROGRESS NOTE ---
DATE: 01/18/2017 SUBJECTIVE: Patient has no focal complaints. Still weak. She is very concerned about the concept of blood clots. We have kind of discussed that at length. OBJECTIVE: Vital signs: Blood pressure 103/52, heart rate 67, respiratory rate 24, temperature 99.1 degrees, 92 to 94% on room air. Cardiovascular: Regular rate and rhythm. Pulmonary: Bilateral breath sounds. Clear to auscultation. GI: Soft, nontender, nondistended. Bowel sounds are positive. Extremities: No clubbing or cyanosis. Lymphatics: No peripheral edema. Neurological: Nonfocal. LABORATORY DATA: White count 7.8, hemoglobin and hematocrit 13 and 39, platelets 170,000. Potassium 3.4. Homocystine level was negative. PROBLEM LIST: 1. Pulmonary embolism/deep vein thrombosis. Will transition to Eliquis and follow. Make sure it is affordable. 2. Hypercoagulable workup is in progress. 3. Acute kidney injury. She appears to be stable. Resume her diuretic as needed. I will let her follow up with her PCP for that. 4. Atrial fibrillation. She is still in sinus rhythm. I am going to switch her to daily Toprol and follow clinically. 5. Hypothyroidism. Appears to be stable. 6. Parkinsonism. Appears to be stable. DISPOSITION: Home tomorrow. I think she is stable to go to the floor. Continue to monitor closely. cc: Hussain Alcantara MD
[2017-01-18] MEDS: XANAX PO PRN (20:10)
[2017-01-19 05:25] LABS: HEMATOCRIT 38.3 % (37.0-47.0); MCH 29.9 PG (27-31); MCHC 33.9 g/dL (33-37); MPV 10.5 FL (7.4-10.4); RBC 4.35 XMIL (4.2-5.4)
[2017-01-19 05:47] LABS: AGAP 11; BUN 19 mg/dL (8-22); CALCIUM 8.8 mg/dL (8.8-10.2); CHLORIDE 103 mmol/L (98-107); COSMO 281; POTASSIUM 3.4 mmol/L (3.5-5.1); SODIUM 140 mmol/L (136-145); TCO2 26 mmol/L (25-35)
[2017-01-19] MEDS: SYNTHROID PO SCH (06:08)
--- NOTE | 2017-01-19 08:39 | PROGRESS NOTE ---
DATE: 01/19/2017 CHIEF COMPLAINT: Shortness of breath. Irregular heartbeat. SUBJECTIVE: Mrs. Chanel is complaining of "hard knots" developing in the left upper thigh, the back of the left arm close to the shoulder, and the right anterior arm. These are ecchymotic areas with a central induration suspicious for superficial thrombophlebitis. These have developed in 3 separate areas of the limbs. Her rhythm has remained sinus. OBJECTIVE: Vital signs: Her blood pressure today is 113/58, temperature 99.3, pulse 76, respirations 15. General: She is awake, alert, oriented, in no distress. Skin: She has the aforementioned skin lesions in the right upper extremity, left upper extremity, and left upper thigh consistent with 3 areas of thrombophlebitis. HEENT: Unremarkable. Chest: Clear to auscultation and percussion. Cardiac: Heart sounds are regular and rhythmic. I do not hear a gallop or murmur. Abdomen: Obese, nontender, no masses, no hepatomegaly. Extremities: There is no edema. BLOOD WORK TODAY: White count 9860, platelet count is 180,000, hemoglobin 13.0. Sodium 140, potassium 3.4, BUN 19, creatinine 0.8. IMPRESSION: 1. Patient presented with a large pulmonary embolism and paroxysmal atrial fibrillation with right ventricular strain manifested by the slight elevation of troponin levels. 2. History of Parkinson's. 3. History of hypothyroidism. 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 That is usually associated with cancer. I would suggest to get an immediate hematology consultation. We will discuss with the primary service. Thank you again for the opportunity to participate in her evaluation. Best regards. cc: Fred Palencia MD
[2017-01-19] MEDS: PRILOSEC PO SCH (09:24)
[2017-01-19] MEDS: STALEVO 100 PO SCH ×4 (09:25→21:30)
[2017-01-19] MEDS: DITROPAN PO SCH ×2 (09:25→21:30)
[2017-01-19] MEDS: MIRALAX PO SCH (09:25)
[2017-01-19] MEDS: PREDNISONE PO SCH (09:25)
[2017-01-19] MEDS: ZOLOFT PO SCH (09:25)
[2017-01-19] MEDS: TOPROL XL PO SCH (09:25)
[2017-01-19] MEDS: PATIENT'S OWN MED TD SCH (09:30)
[2017-01-19] MEDS ORDERED: HEPARIN 25,000 UNITS/D5W 25,000 UNIT/250 ML IV.SOLN IV SCH ×2 (09:30→18:00)
--- NOTE | 2017-01-19 14:50 | MAMMOGRAPHY RESULT DOCUMENT ---
DIGITAL BILAT MAMMOGRAM DIAG - 01/19/2017 INDICATION: r/o cancer in pt with PE COMPARISON: 08/16/2009 TECHNIQUE: Computer aided detection imaging was used. FINDINGS: The breast tissue is almost entirely fatty. There are no suspicious findings seen. IMPRESSION: No mammographic evidence of malignancy. Recommend annual clinical breast exam and screening mammogram. ACR BI-RADS CATEGORY 1: NEGATIVE NOTE: This facility is accredited by the [employer] for Mammography. A mammogram report should not delay biopsy if a dominant or clinically suspicious mass is present. Some cancers are not identified by mammography. Adenosis and dense breasts may obscure any underlying neoplasm Electronically signed by Cayetano Lawrence 01/19/2017 2:48 PM
--- NOTE | 2017-01-19 15:08 | Diag Imaging Result Doc PS360 ---
EXAM: THORAX/ABDOMEN/PELVIS HISTORY: r/o ca in pt with PE TECHNIQUE: CT of the chest with intravenous contrast; CT of the abdomen and pelvis with intravenous contrast. Dose reduction (clarity.) COMMENT: Chest: The current study is compared without of 01/15/2017. There is slightly worsened atelectasis in the lung bases compared to the previous examination. This is particularly true in the posterior costophrenic sulcus on the left. There is still filling defects in pulmonary arterial branches in the posterior right lower lobe however this is far less extensive than on the previous study the embolus in the interlobar artery is smaller. There is less thrombus present in the left lower lobe pulmonary artery. The thrombus in the lingular branch on the left has diminished in size. Otherwise there has been no significant change in the appearance of the chest. ABDOMEN: There has been cholecystectomy. The spleen adrenal glands and pancreas are within normal limits. There is a fair amount of stool and gas in the colon. There are some prominent ileocolic nodes one of which measures over a centimeter in size. There is no evidence of abdominal aortic aneurysm. The kidneys are without evidence of hydronephrosis or mass. Pelvis: There are bilateral adnexal fat-containing masses the left demonstrating a fat fluid level. The right-sided mass measures over 4.3 cm, the left-sided mass 3.3 cm. The endometrium is thickened in the fundus measuring over 12 mm. No free fluid is present. There is gas in the urinary bladder which may have been introduced due to instrumentation. There are degenerative facet changes in the lumbar spine. There is no evidence of appendicitis. IMPRESSION: 1. Improving pulmonary emboli. Slightly worsened atelectasis. 2 Bilateral ovarian dermoid teratomata. Nonspecific mesenteric adenitis. Thickened endometrium. Electronically signed by Rito Saba 01/19/2017 3:05 PM
--- NOTE | 2017-01-19 16:31 | PROGRESS NOTE ---
DATE: 01/19/2017 SUBJECTIVE: Today, Ms. Chanel refers to be doing relatively fine. She has been evaluated by both Heme-Onc and Cardiology. OBJECTIVE: Vital signs: Blood pressure is 129/69, pulse of 70, respirations 18 , temperature is 98.6 degrees, and patient is saturating 95% on room air. General: Ms. Chanel is a 66-year-old female. She is in bed, not seemingly distressed. HEENT: Mucosa pink and moist. Anicteric. Acyanotic. Neck: Supple. Chest: Good air entry bilaterally. A few bibasilar crepitations. Cardiovascular: Regular rate and rhythm. Abdomen: Soft, nontender. Extremities: No pedal edema. Central Nervous System: Patient is alert and oriented. There is no focal neurological deficit. Patient seems to have a little slow response in responding to interrogation, also has some mask facies consistent with the history of Parkinson's. LABORATORY DATA: WBC is 9.86, hemoglobin 13.0, platelet count 180,000. Chemistry is reviewed and completely normal except for potassium of 3.4. DIAGNOSTIC STUDIES: A CT scan of the chest, abdomen, and pelvis was done, which shows some improvement in the pulmonary emboli and some slightly worsened atelectasis, bilateral ovarian dermatoid teratoma, and nonspecific mesenteric adenitis. There is a thickened endometrium. Otherwise, the pancreas was unremarkable and kidneys were unremarkable. A mammogram which was done is completely negative. ASSESSMENT: 1. Venous thromboembolism (bilateral pulmonary emboli with deep venous thrombosis). Patient is currently on heparin drip and is being evaluated by Heme-Onc. I think eventually the patient can go home on any one of the new anticoagulants if she is able to afford it. There has been concern of a secondary cause for this level of clot burden, specifically to rule out an underlying malignancy. A CT scan of the abdomen and pelvis only showed mild endometrial thickening. I am not quite sure if this could be an endometrial adenocarcinoma. It needs to be followed up. However, I do think that the patient has been immobile and has been sedentary for a while as the said today; and this is just the predisposition factor for her venous thromboembolism. 2. Acute kidney injury, improved. 3. History of hypothyroidism, stable. 4. Parkinson disease. Patient is on Stalevo and Neupro patch. 5. Paroxysmal atrial fibrillation, noted. In general, I think Ms. Chanel is doing a whole lot better. Hopefully, by tomorrow we can start her on oral anticoagulation and get her ready for discharge. Upon reviewing the scan of the abdomen, there is a lymph node in the abdomen which is slightly bigger. Will discuss with Heme- Onc if they would want to go ahead and biopsy this or do it on an outpatient basis. cc: Rober Deutsch MD MTDD
[2017-01-19] MEDS ORDERED: HEPARIN IV PRN (17:54)
[2017-01-19] MEDS: XANAX PO PRN (21:32)
[2017-01-20] MEDS ORDERED: HEPARIN 25,000 UNITS/D5W 25,000 UNIT/250 ML IV.SOLN IV SCH (00:52)
[2017-01-20] MEDS: SYNTHROID PO SCH (06:00)
[2017-01-20] MEDS: PRILOSEC PO SCH (10:32)
[2017-01-20] MEDS: STALEVO 100 PO SCH ×3 (10:32→18:54)
[2017-01-20] MEDS: TOPROL XL PO SCH (10:32)
[2017-01-20] MEDS: DITROPAN PO SCH (10:33)
[2017-01-20] MEDS: ZOLOFT PO SCH (10:33)
[2017-01-20] MEDS: MIRALAX PO SCH (10:33)
[2017-01-20] MEDS: PREDNISONE PO SCH (10:33)
[2017-01-20] MEDS: PATIENT'S OWN MED TD SCH (11:25)
[2017-01-20 17:18] VITALS: BP 111/57
[2017-01-20] MEDS ORDERED: LOVENOX SUBQ SCH (21:00)
--- NOTE | 2017-01-21 12:05 | DISCHARGE SUMMARY ---
ADMISSION DATE: 01/15/2017 DISCHARGE DATE: 01/20/2017 DISPOSITION: Home. FOLLOWUP: 1. Dr. Richy Whitney. 2. Dr. Fred Palencia MD. 3. Dr. Luis Cox. CONSULTATIONS DURING THIS ADMISSION: 1. Cardiology was consulted. Patient was seen by Dr. Palencia. 2. Hematology/Oncology was consulted. Patient was seen by Dr. Whitney. IMAGING STUDIES OF SIGNIFICANCE: A CTA of the lungs was done, which shows numerous large bilateral pulmonary emboli. A Doppler ultrasound of the lower extremities was done. A subsequent CT scan of the chest, abdomen, and pelvis was done, which shows improving pulmonary emboli, some bilateral ovarian dermoid teratoma and thickened endometrium. ADMISSION DIAGNOSES: 1. Bilateral pulmonary embolism. 2. New onset atrial fibrillation. 3. Acute kidney injury. 4. History of Parkinson's. DIAGNOSES AT THE TIME OF DISCHARGE: 1. Venous thromboembolism (bilateral pulmonary emboli with deep vein thromboses). 2. Acute kidney injury, improved. 3. History of hypothyroidism. 4. Parkinson disease. 5. Paroxysmal atrial fibrillation. 6. Right heart strain due to pulmonary embolism. DISCHARGE MEDICATIONS: 1. Lovenox 1 mg/kg q.12. 2. Metoprolol 25 mg daily. 3. Alprazolam 0.25 three times per day. 4. Levothyroxine 100 mcg daily. 5. Stalevo 100 mg daily. 6. Oxybutynin 50 mg b.i.d. 7. Prednisone 5 mg daily. 8. Tramadol 50 mg p.o. q.6 p.r.n. 9. Rotigotine 1 patch daily. PRESENTING COMPLAINT: Shortness of breath, chest pain. HISTORY OF PRESENTING COMPLAINT: Ms. Chanel is a 66-year-old female with a history of Parkinson's with debilitating gait disturbance who is very regularly bed-bound and wheelchair- bound, with very minimal activity. She came to the emergency department because of shortness of breath. The patient was evaluated. Initial workup revealed that she had bilateral PE and the patient was admitted for further medical care. HOSPITAL COURSE: The patient was admitted. Was initially started on Lovenox and transitioned to p.o. Eliquis. However, there were some skin bruises noted, so the Eliquis was discontinued and patient was started on heparin drip. Cardiology was consulted and Hematology/Oncology was consulted. There was the thought process that there might be underlying thrombophilic disorder, so a genetic workup was done and malignancy was ruled out. CT scan of the chest, abdomen, and pelvic was done. There was finding of dermoid cysts bilaterally and endometrial thickening, and there was the concern that this could be possible malignancy, so the patient has been advised to follow up with her [employer] to do more investigations on the bilateral ovarian dermoid cysts and also the endometrial thickening. At the time of discharge, the patient is supposed to get the first dose of Lovenox. Once that is given, then she will be able to be discharged to home to continue on b.i.d. Lovenox and follow up with Dr. hWitney. I specifically spoke with Dr. Whitney this afternoon and he was okay for the patient to go home once she has been started on her Lovenox, and he also said he would arrange for the [employer] [employer], Heme-Onc consult for the patient on an outpatient basis. At the time of discharge, the genetic thrombophilic workup was still pending, which patient will review with Dr. Whitney. TIME SPENT FOR DISCHARGE: Thirty-six minutes. cc: MD Richy Arboleda MD Luis N. Villanueva, MD John V. Irle, MD
--- NOTE | 2017-01-21 12:51 | CONSULTATION ---
DATE OF CONSULTATION: 01/19/2017 FAMILY PHYSICIAN: Dr. Luis Cox. NEUROLOGIST: Dr. Riddle, [facility]. REQUESTING PHYSICIAN: Dr. Aguillon. We appreciate this consult. CHIEF COMPLAINT: Bilateral pulmonary embolus and request to manage anticoagulants. HISTORY OF PRESENT ILLNESS: Ms. Chanel is a very pleasant, 66-year-old female with a history of Parkinson's disease and hypothyroidism who presented to [facility] Emergency Department secondary to a near syncopal episode. The patient reports that she was in the kitchen when she became lightheaded and short of breath. She did not fall. She slid to the ground and began having substernal chest pain radiating to her right jaw. The patient reports that the chest pain felt like a tightness in her throat. On arrival to [facility] the patient was noted to be tachycardic and in atrial fibrillation which is a new diagnosis. Additionally the patient was hypoxic with an oxygen saturation of 86 on room air. Cardiac labs revealed a normal CK and troponin. The patient did convert to sinus rhythm spontaneously. EKG revealed inverted T- waves with ischemia. CTA obtained in the emergency department was positive for bilateral PE. The patient was given 100 mcg of Lovenox in the ER and admitted to CICU. Ultimately the patient was placed on a heparin drip and we are consulted for anticoagulation. PAST MEDICAL HISTORY: 1. Parkinson's disease. 2. Hypothyroidism. 3. Degenerative disk disease. 4. Lower extremity edema. PAST SURGICAL HISTORY: 1. Right knee replacement. 2. Rhinoplasty. 3. Tubal ligation. 4. Cholecystectomy. SOCIAL HISTORY: The patient does not use tobacco, alcohol or illicit drugs. FAMILY HISTORY: Negative for any hematologic or oncologic diagnosis. MEDICATIONS ON ADMISSION: 1. Xanax. 2. Levothyroxine. 3. Maxzide. 4. Stalevo. 5. Ditropan. ALLERGIES: The patient has no known drug allergies. REVIEW OF SYSTEMS: A 14 point review of systems was obtained and is negative except as mentioned in HPI. PHYSICAL EXAMINATION: Ms. Chanel is a very pleasant 66-year-old female lying supine in bed in no immediate distress.Vital Signs: Temperature 99.8 degrees, blood pressure 113/58 , heart rate 76, respirations 15, O2 saturation 92% on 2 L nasal cannula O2. HEENT: Normocephalic, atraumatic. Mucous membranes are pink and moist. Sclerae is anicteric. Extraocular movements intact. Neck: Supple. Lungs: With decreased breath sounds in the bases. Otherwise clear to auscultation bilaterally. CV: S1, S2 is heard without murmur, rub or gallop. Abdomen: Soft, nondistended, nontender. Bowel sounds positive all quadrants. No rebound or guarding is noted. Extremities: Without clubbing or cyanosis. She does have trace bilateral lower extremity edema. Dermatologic: No rashes, bruises or lesions. Neurologic: The patient is awake, alert, and oriented x3. She has no focal deficit at this time. LABORATORY DATA: Hemoglobin 13.0, hematocrit 38.3, white blood cell count is 9.86, platelets 180,000. Sodium 140, potassium 3.4, chloride 103, CO2 is 26, BUN 19, creatinine 0.8, and glucose is 90. ASSESSMENT AND PLAN: 1. Pulmonary embolus which is bilateral. Currently on a heparin drip. We will check a hypercoagulable workup. We would monitor the patient for bleeding and monitor CBC. Additionally we will check a CT of the chest, abdomen and pelvis as well as a mammogram. 2. New onset atrial fibrillation with Cardiology currently following. The patient is in normal sinus rhythm at this time. 3. Acute kidney insufficiency. On IV fluids. Would monitor CMP. 4. Parkinson's disease. Currently on Stalevo. Stable at this time. 5. Hypothyroidism. Stable. 6. Hypokalemia. Potassium is currently 3.4. Would monitor potassium and replete as necessary. 7. We will follow along with you and make further recommendations pending outcomes. Dictated by MAX Modi for Bertin Whitney MD cc: MAX Modi MD [facility]
== END 2017-01-20 18:57 | disposition home or self-care (01) ==
LOC: ED 17:01 → SUATTDRO 23:28 → 3S 23:28 → 3N 01-19 15:46
PROVIDERS: ATTEND Internal Medicine